=== PATIENT | female | born 1965 | race Two or more races ===

== ENCOUNTER 2024-09-01 09:30 | Day surgery (SDC) | payer MEDICAID, SELFPAY ==
[2024-09-01] VITALS (13 sets, daily range): BP systolic 111–166; BP diastolic 53–98; PULSE 63–84; RESP 12–19; TEMP 36.7–37; O2SAT 96–100; BMI 39.0
[2024-09-01] MEDS: RINGERS LACTATED 1000 ML 1,000 ML 60 ML IV (15:18)
[2024-09-01] MEDS: MIDAZOLAM INJ 1 MG/ML VIAL 2 ML (ASD USE ONLY) 2 MG IV (15:18)
[2024-09-01] MEDS: DiphenhydrAMINE INJ 50 MG/ML VIAL 25 MG IV (15:19)
[2024-09-01] MEDS: fentaNYL CIT INJ 50 mCg/ML AMP 2ML (ASD USE ONLY) IV (15:19)
--- NOTE | 2024-09-01 16:26 | SUR.PHASEII ---
Pt waiting longer in PACU due to waiting for family members to arrive and provide a ride. pt family is from [place] and due to the unexpected delays in the cases the pt was done with procedure later and the daughter who works here in town will be picking her up at 5 right after she gets off work rather than the son in law driving 40 min and arrive at the same time as the pt daughter. pt resting in wheelchair no c/o pain, tolerating jello and juice well. no c/o of nausea.
--- NOTE | 2024-09-01 17:24 | SUR.PHASEII ---
pt daughter arrive and pt was d/c home. d/c instructions given to pt and daughter. no questions or concerns.
== END 2024-09-01 17:19 | disposition home or self-care (01) ==
PROVIDERS: Referring Provider Specialist; Visit Provider Specialist
PROC: 0DBE8ZX Excision of Large Intestine, Via Natural or Artificial Opening Endoscopic, Diagnostic (ICD-10-PCS; CPT 45380; principal; 2024-09-01 10:30)
DX: Z12.11 Encounter for screening for malignant neoplasm of colon (principal); K60.2 Anal fissure, unspecified; K64.2 Third degree hemorrhoids; K57.30 Diverticulosis of large intestine without perforation or abscess without bleeding
CPT/HCPCS: 45378; J1200; J2250; J3010; J7120